=== PATIENT | male | born 1965 | race Caucasian/White ===

== ENCOUNTER 2021-01-19 10:14 | Day surgery (SDC) | payer OTHER ==
[2021-01-19] MEDS ORDERED: LACTATED RINGERS 1,000 ML IV ONE ×2 (10:33→12:26)
--- NOTE | 2021-01-19 10:34 | ANESTHESIA ---
Pre-Anesthesia VS, & Labs - Diagnosis screening - Procedure colonoscopy w/biopsies Vital Signs: Temp Pulse Resp BP Pulse Ox 36.8 C 79 14 115/84 H 99 01/19/21 10:15 01/19/21 10:15 01/19/21 10:15 01/19/21 10:15 01/19/21 10:15 Height: 5 ft 11.5 in Weight (kg): 89.5 kg Body Mass Index: 27.1 BMI Classification: Overweight - NPO >8 hours - Lab Results Lab results reviewed: Yes Home Medications and Allergies Home Medications: Ambulatory Orders Levothyroxine Sodium [Synthroid] 1 tab PO DAILY 01/18/21 Levothyroxine Sodium [Synthroid] 1 tab PO DAILY 01/18/21 Allergies/Adverse Reactions: Allergies Allergy/AdvReac Type Severity Reaction Status Date / Time No Known Drug Allergies Allergy Verified 01/18/21 13:16 Anes History & Medical History - Anesthetic History Anesthesia Complications: reports: No previous complications Family history of Anesthesia Complications: Denies Family history of Malignant Hyperthermia: Denies - Medical History Cardiovascular: reports: None Pulmonary: reports: None Gastrointestinal: reports: Colon polyps Urinary: reports: None Musculoskeletal: reports: None Endocrine/Autoimmune: reports: HyPOthyroidism Skin: reports: None History of Cancer?: Yes (thyroid) - Surgical History Orthopedic: reports: Arthroscopic surgery Exam General: Alert, Oriented x3, Cooperative Dental: WNL Mouth Openin Fingerbreadth Neck Mobility: Normal Mallampati classification: II Thyromental Distance: 4-6 cm Respiratory: Lungs clear, Normal breath sounds, No respiratory distress Cardiovascular: Regular rate Neurological: Normal speech Mental/Cognitive Status: Alert/Oriented X3, Normal for patient Cognitive Status: Within normal limits Plan Anesthesia Type: Total IV Consent for Procedure(s) Verified and Reviewed: Yes Code Status: Attempt Resuscitation ASA classification: 2-Mild systemic disease Is this case an emergency?: No
[2021-01-19] MEDS ORDERED: MIDAZOLAM 2 MG/2 ML VIAL ONE (10:51)
[2021-01-19] MEDS ORDERED: PROPOFOL 500 MG/50 ML 500 MG/50 ML VIAL ONE (10:52)
[2021-01-19 12:07] VITALS: BP 90/63
--- NOTE | 2021-01-19 12:42 | ANESTHESIA POST OP EVALUATION ---
Anesthesia Post Eval - Post Anesthesia Eval Vitals: Last Vital Signs Temp 36.7 C 01/19/21 12:04 Pulse 74 01/19/21 12:04 Resp 16 01/19/21 12:04 BP 90/63 01/19/21 12:04 Pulse Ox 99 01/19/21 12:04 CV Function Including HR & BP: Stable Pain Control: Satisfactory Nausea & Vomiting: Negative Mental Status: Baseline Respiratory Status: Airway Patent Hydration Status: Satisfactory Anesthesia Complications: None
== END 2021-01-19 10:15 | disposition home or self-care (01) ==
LOC: SDS 10:14
PROVIDERS: ATTEND Surgery
PROC: 0DCE8ZZ Extirpation of Matter from Large Intestine, Via Natural or Artificial Opening Endoscopic (ICD-10-PCS; 2021-01-19)
PROC: 0DBK8ZX Excision of Ascending Colon, Via Natural or Artificial Opening Endoscopic, Diagnostic (ICD-10-PCS; principal; 2021-01-19 11:30)
DX: Z12.11 Encounter for screening for malignant neoplasm of colon (principal); K63.5 Polyp of colon; K57.30 Diverticulosis of large intestine without perforation or abscess without bleeding; K64.8 Other hemorrhoids; T18.4XXA Foreign body in colon, initial encounter; E89.0 Postprocedural hypothyroidism; Z79.890 Hormone replacement therapy; Z80.9 Family history of malignant neoplasm, unspecified; Z85.850 Personal history of malignant neoplasm of thyroid
CPT/HCPCS: 45379; 45380; J7120